=== PATIENT | female | born 1955 | race Caucasian/White ===

== ENCOUNTER → 2016-11-20 | Outpatient (CLI) | payer BC, OTHER ==
[~2016-11-20] MED LIST: AMLODIPINE BES2.5 MG PO; CALCIUM CARBO1250 MG PO; CELEXA 20MG20 MG/TA1 PO; MIRALAX 17GM PK1 PKT PO; PRILOSEC 20MG20 MG PO; TOPROL XL200 MG PO
== END ==
LOC: LAB 16:46
DX: D64.9 Anemia, unspecified (principal); R53.83 Other fatigue; E55.9 Vitamin D deficiency, unspecified

== ENCOUNTER → 2017-06-03 | Outpatient (CLI) | payer BC, OTHER ==
[2016-07-20 15:10] VITALS: BP 120/42
== END ==
LOC: MAMMO 11:05
DX: Z13.820 Encounter for screening for osteoporosis (principal); M85.80 Other specified disorders of bone density and structure, unspecified site; Z12.31 Encounter for screening mammogram for malignant neoplasm of breast; Z00.00 Encounter for general adult medical examination without abnormal findings; I10 Essential (primary) hypertension; K21.9 Gastro-esophageal reflux disease without esophagitis; R15.9 Full incontinence of feces; Z13.6 Encounter for screening for cardiovascular disorders
CPT/HCPCS: G0202

== ENCOUNTER → 2017-06-05 | Outpatient (CLI) | payer BC, OTHER ==
[2016-07-20 15:10] VITALS: BP 120/42
== END ==
LOC: RAD 10:15
DX: K59.00 Constipation, unspecified (principal)

== ENCOUNTER → 2017-06-13 | Outpatient (CLI) | payer BC, OTHER ==
[2016-07-20 15:10] VITALS: BP 120/42
== END ==
LOC: RAD 14:43
DX: K59.00 Constipation, unspecified (principal); R15.9 Full incontinence of feces; M46.96 Unspecified inflammatory spondylopathy, lumbar region

== ENCOUNTER → 2018-05-29 | Outpatient (CLI) | payer BC, OTHER ==
[2016-07-20 15:10] VITALS: BP 120/42
[2018-05-29 15:19] LABS: HEMATOCRIT 38.3 % (37.0-47.0); HEMOGLOBIN 12.4 g/dL (12.5-16.0); MEAN PLATELET VOLUME 9.2 fl (7.4-10.4); RED BLOOD COUNT 4.22 M/mm3 (4.10-5.30); RED CELL DISTRIBUTION WIDTH 13.6 % (11.5-14.5); WHITE BLOOD COUNT 5.5 K/mm3 (4.8-10.8)
== END ==
LOC: RAD 15:06
PROVIDERS: Family Medicine
DX: M47.892 Other spondylosis, cervical region (principal); M54.5 Low back pain; G89.29 Other chronic pain

== ENCOUNTER → 2018-10-15 | Outpatient (CLI) | payer BC, OTHER ==
[2016-07-20 15:10] VITALS: BP 120/42
[2018-10-15 16:34] LABS: ALBUMIN 4.4 g/dL (3.5-5.0); CALCIUM 9.2 mg/dL (8.4-10.2); POTASSIUM 4.1 mmol/L (3.6-5.0); TOTAL BILIRUBIN 0.6 mg/dL (0.2-1.3); TOTAL PROTEIN 7.5 g/dL (6.3-8.2)
== END ==
LOC: LAB 15:43
PROVIDERS: Family Medicine
DX: Z13.6 Encounter for screening for cardiovascular disorders (principal); Z13.1 Encounter for screening for diabetes mellitus

== ENCOUNTER → 2018-10-30 | Outpatient (CLI) | payer BC, OTHER ==
[2016-07-20 15:10] VITALS: BP 120/42
== END ==
LOC: CARDREHAB 11:03 → CARDLAB 16:10
DX: Z13.6 Encounter for screening for cardiovascular disorders (principal); I10 Essential (primary) hypertension
CPT/HCPCS: A9500

== ENCOUNTER → 2018-11-12 | Outpatient (CLI) | payer BC, OTHER ==
[2016-07-20 15:10] VITALS: BP 120/42
== END ==
LOC: MAMMO 11-11 15:15
DX: Z12.31 Encounter for screening mammogram for malignant neoplasm of breast (principal); N63.10 Unspecified lump in the right breast, unspecified quadrant

== ENCOUNTER → 2018-11-19 | Outpatient (CLI) | payer BC, OTHER ==
[2016-07-20 15:10] VITALS: BP 120/42
== END ==
LOC: MAMMO 10-28 16:00
DX: N63.41 Unspecified lump in right breast, subareolar (principal)

== ENCOUNTER → 2018-12-07 | Outpatient (CLI) | payer BC, OTHER ==
[2016-07-20 15:10] VITALS: BP 120/42
== END ==
LOC: RAD 16:57
DX: M19.072 Primary osteoarthritis, left ankle and foot (principal); M20.12 Hallux valgus (acquired), left foot

== ENCOUNTER → 2019-03-18 | Outpatient (CLI) | payer BC, OTHER ==
[2016-07-20 15:10] VITALS: BP 120/42
[2019-03-18 17:15] LABS: EOS # 0.2 (0.04-0.40); EOS % 2.3 % (1.0-5.0); HEMOGLOBIN 12.1 g/dL (12.5-16.0); LYMPH# 1.6 (1.50-4.00); MEAN CELL VOLUME 91 fl (78-100); MEAN CORPUSCULAR HEMOGLOBIN 29 pg (27-31); MEAN CORPUSCULAR HGB CONC 32 g/dL (33-37); MEAN PLATELET VOLUME 9.2 fl (7.4-10.4); MONO # 0.6 (0.20-0.80); NEU # 4.1 (1.40-6.50); PLATELET COUNT 210 K/mm3 (130-400); RED BLOOD COUNT 4.18 M/mm3 (4.10-5.30); RED CELL DISTRIBUTION WIDTH 13.5 % (11.5-14.5); WHITE BLOOD COUNT 6.4 K/mm3 (4.8-10.8)
== END ==
LOC: LAB 16:49
PROVIDERS: Family Medicine
DX: D12.6 Benign neoplasm of colon, unspecified (principal); K62.5 Hemorrhage of anus and rectum

== ENCOUNTER → 2019-04-12 | Day surgery (SDC) | payer BC, OTHER ==
[2016-07-20 15:10] VITALS: BP 120/42
== END ==
LOC: MSO 09:29
DX: K92.1 Melena (principal); I10 Essential (primary) hypertension; Z87.891 Personal history of nicotine dependence; K21.9 Gastro-esophageal reflux disease without esophagitis; M19.90 Unspecified osteoarthritis, unspecified site; G43.909 Migraine, unspecified, not intractable, without status migrainosus; R73.03 Prediabetes; Z88.1 Allergy status to other antibiotic agents; Z86.010 Personal history of colon polyps; Z90.710 Acquired absence of both cervix and uterus; Z80.0 Family history of malignant neoplasm of digestive organs
CPT/HCPCS: 00812; J2704; J7120

== ENCOUNTER → 2019-05-20 | Outpatient (CLI) | payer BC, OTHER ==
[2016-07-20 15:10] VITALS: BP 120/42
== END ==
LOC: RAD 13:45
DX: Z12.31 Encounter for screening mammogram for malignant neoplasm of breast (principal); Z13.820 Encounter for screening for osteoporosis; M85.80 Other specified disorders of bone density and structure, unspecified site

== ENCOUNTER → 2019-05-20 | Outpatient (CLI) | payer BC, OTHER ==
[2016-07-20 15:10] VITALS: BP 120/42
== END ==
LOC: MAMMO 12:15
DX: N63.10 Unspecified lump in the right breast, unspecified quadrant (principal)

== ENCOUNTER → 2019-09-17 | Outpatient (CLI) | payer BC, OTHER ==
[2016-07-20 15:10] VITALS: BP 120/42
== END ==
LOC: LAB 15:30
DX: R14.0 Abdominal distension (gaseous) (principal); R10.84 Generalized abdominal pain

== ENCOUNTER → 2020-03-29 | Outpatient (CLI) | payer BC, OTHER ==
[2016-07-20 15:10] VITALS: BP 120/42
== END ==
LOC: RAD 15:00
DX: M19.072 Primary osteoarthritis, left ankle and foot (principal)

== ENCOUNTER → 2021-06-06 | Outpatient (CLI) | payer BC, OTHER ==
[2021-06-06 08:42] LABS: ALBUMIN 3.8 g/dL (3.4-4.8); POTASSIUM 4.5 mmol/L (3.5-5.1)
[2021-06-06 08:43] LABS: CALCIUM 9.2 mg/dL (8.3-10.5)
[2021-06-06 08:44] LABS: TOTAL PROTEIN 7.1 g/dL (6.2-8.1)
[2021-06-06 08:46] LABS: TOTAL BILIRUBIN 0.3 mg/dL (0.2-1.2)
== END ==
LOC: MAMMO 08:13
PROVIDERS: Family Medicine
DX: Z12.31 Encounter for screening mammogram for malignant neoplasm of breast (principal); N63.20 Unspecified lump in the left breast, unspecified quadrant; I10 Essential (primary) hypertension; Z68.30 Body mass index [BMI] 30.0-30.9, adult

== ENCOUNTER → 2021-06-15 | Outpatient (CLI) | payer BC, OTHER | LOC: CARDLAB 09:44 | DX: Z13.6 Encounter for screening for cardiovascular disorders (principal) | CPT/HCPCS: A9500 ==

== ENCOUNTER → 2021-06-21 | Outpatient (CLI) | payer BC, OTHER, MEDICARE | LOC: LAB 12:51 → RAD 12:51 | DX: E11.9 Type 2 diabetes mellitus without complications (principal) ==

== ENCOUNTER → 2021-06-28 | Outpatient (CLI) | payer BC | LOC: RAD 13:43 | DX: N63.20 Unspecified lump in the left breast, unspecified quadrant (principal) | CPT/HCPCS: 15989; 15990; A4648 ==

== ENCOUNTER → 2021-12-26 | Outpatient (CLI) | payer MEDICARE, OTHER ==
[2021-12-26 16:34] LABS: POTASSIUM 4.1 mmol/L (3.5-5.1)
[2021-12-26 16:36] LABS: CALCIUM 9.7 mg/dL (8.3-10.5)
[2021-12-26 16:37] LABS: TOTAL PROTEIN 7.6 g/dL (6.2-8.1)
[2021-12-26 16:39] LABS: TOTAL BILIRUBIN 0.2 mg/dL (0.2-1.2)
== END ==
LOC: LAB 16:15
PROVIDERS: Internal Medicine
DX: C50.412 Malignant neoplasm of upper-outer quadrant of left female breast (principal)

== ENCOUNTER → 2022-01-11 | Outpatient (CLI) | payer MEDICARE, OTHER | LOC: LAB 15:17 | DX: E11.9 Type 2 diabetes mellitus without complications (principal) ==

== ENCOUNTER → 2022-05-20 | Outpatient (CLI) | payer MEDICARE, OTHER | LOC: RAD 16:32 | DX: R10.9 Unspecified abdominal pain (principal) ==

== ENCOUNTER → 2022-06-19 | Outpatient (CLI) | payer MEDICARE, OTHER ==
[2022-06-19 10:28] LABS: HEMATOCRIT 37.8 % (37.0-47.0); HEMOGLOBIN 11.9 g/dL (12.5-16.0); MEAN PLATELET VOLUME 8.9 fl (7.4-10.4); RED BLOOD COUNT 4.18 M/mm3 (4.10-5.30); RED CELL DISTRIBUTION WIDTH 13.1 % (11.5-14.5); WHITE BLOOD COUNT 4.5 K/mm3 (4.8-10.8)
[2022-06-19 10:36] LABS: ALBUMIN 3.9 g/dL (3.4-4.8); POTASSIUM 4.3 mmol/L (3.5-5.1)
[2022-06-19 10:37] LABS: CALCIUM 9.6 mg/dL (8.3-10.5)
[2022-06-19 10:38] LABS: TOTAL PROTEIN 7.5 g/dL (6.2-8.1)
[2022-06-19 10:40] LABS: TOTAL BILIRUBIN 0.4 mg/dL (0.2-1.2)
== END ==
LOC: RAD 10:15 → LAB 10:15
PROVIDERS: Family Medicine
DX: Z13.820 Encounter for screening for osteoporosis (principal); Z13.6 Encounter for screening for cardiovascular disorders; N93.9 Abnormal uterine and vaginal bleeding, unspecified; E11.9 Type 2 diabetes mellitus without complications; M85.80 Other specified disorders of bone density and structure, unspecified site; R07.81 Pleurodynia; Z85.3 Personal history of malignant neoplasm of breast; Z86.2 Personal history of diseases of the blood and blood-forming organs and certain disorders involving the immune mechanism; Z78.0 Asymptomatic menopausal state

== ENCOUNTER → 2024-04-26 | Outpatient (CLI) | payer MEDICARE, OTHER ==
[2024-04-26 14:22] LABS: CALCIUM 9.4 mg/dL (8.3-10.5)
== END ==
LOC: LAB 13:46
PROVIDERS: Family Medicine
DX: Z13.6 Encounter for screening for cardiovascular disorders (principal); I10 Essential (primary) hypertension; E11.9 Type 2 diabetes mellitus without complications; M54.50 Low back pain, unspecified; M25.562 Pain in left knee